=== PATIENT | male | born 1955 | race Caucasian/White ===

== ENCOUNTER 2018-05-11 07:41 | Emergency (ER) | payer SELFPAY ==
[~2018-05-11] VITALS: Ht 162.6 cm; Wt 65.3 kg
[2018-05-11] MEDS ORDERED: NORVASC10 MG PO ×2 (08:04→08:12)
[2018-05-11] MEDS ORDERED: FREEZE IT RE113.4 GM TOP (08:46)
[2018-05-11 08:51] VITALS: BP 190/80
== END 2018-05-11 08:53 | disposition home or self-care (01) ==
LOC: FSED 07:41
DX: I10 Essential (primary) hypertension (principal); D75.1 Secondary polycythemia; F17.210 Nicotine dependence, cigarettes, uncomplicated
CPT/HCPCS: 80048; 81003; 85025; 99283